=== PATIENT | female | born 1955 | race Caucasian/White ===

== ENCOUNTER 2020-08-07 10:49 | Emergency (ER) | payer BC, OTHER ==
[~2020-08-07] VITALS: Ht 162.6 cm; Wt 45.8 kg
[2020-08-07 11:36] LABS: ABSOLUTE NEUTROPHILS 6.5 thou/uL (1.4-8.2); BASOPHILS 0.6 % (0.0-2.0); EOSINOPHILS 2.4 % (0.0-3.0); HEMATOCRIT 37.2 % (37.0-47.0); HEMOGLOBIN 12.5 gm/dL (12.0-15.0); LYMPHOCYTES 15.9 % (24.0-44.0); MCH 33.4 pg (26.0-34.0); MCHC 33.6 g/dL (28.0-37.0); MCV 99.4 fL (80.0-100.0); MONOCYTES 5.1 % (1.0-8.0); PLATELET COUNT 255 thou/uL (150-400); RBC 3.74 mil/uL (4.20-5.00); RDW 13.8 % (10.5-14.5); WBC 8.6 thou/uL (4.0-11.0)
[2020-08-07 11:48] LABS: ANION GAP 11 mmol/L (7-16); BUN 2 mg/dL (7-18); CALCIUM 8.4 mg/dL (8.5-10.1); CHLORIDE 97 mmol/L (98-107); CO2 29 mmol/L (21-32); CREATININE 0.6 mg/dL (0.6-1.0); GLUCOSE 87 mg/dL (74-106); POTASSIUM 3.3 mmol/L (3.5-5.1); SODIUM 137 mmol/L (136-145)
[2020-08-07 11:49] LABS: INR 1.03; PROTIME 11.2 Seconds (10.5-12.1)
[2020-08-07] MEDS ORDERED: FOSINOPRIL 10 M10 M1 PO (11:55)
[2020-08-07] MEDS ORDERED: CLONAZEPAM 1 MG1 M1 PO (11:55)
[2020-08-07 11:56] LABS: ALBUMIN 3.5 g/dL (3.4-5.0); DIRECT BILIRUBIN 0.1 mg/dL (<0.1-0.2); SALICYLATE 3.7 mg/dL (2.8-20.0); SGOT 143 U/L (15-37); SGPT 125 U/L (14-59); TOTAL BILIRUBIN 0.3 mg/dL (0.2-1.0); TOTAL PROTEIN 6.3 g/dL (6.4-8.2)
[2020-08-07] MEDS ORDERED: HYDROXYZINE HCL10 M2 PO (11:56)
[2020-08-07] MEDS ORDERED: PAROXETINE ER12.5 M2 PO (11:56)
[2020-08-07 12:15] LABS: AMP/METHAMP Negative (Negative); BARBITURATES Negative (Negative); BENZODIAZEPINES Negative (Negative); COCAINE Negative (Negative); METHADONE Negative (Negative); OPIATES Negative (Negative); PCP Negative (Negative)
[2020-08-07 15:16] VITALS: BP 130/68
[2020-08-08] MEDS ORDERED: CLONAZEPAM 1 MG1 M1 PO (10:45)
[2020-08-08] MEDS ORDERED: FOSINOPRIL 10 M10 M1 PO (10:46)
[2020-08-08] MEDS ORDERED: PAROXETINE CR12.5 MG PO (10:47)
[2020-08-08] MEDS ORDERED: HYDROXYZINE HCL10 M2 PO (10:47)
[2020-08-08] MEDS ORDERED: NAPROXEN SODIU220 M2 PO (10:48)
== END 2020-08-07 15:16 ==
LOC: ER 10:49
PROVIDERS: Nurse Practitioner
DX: F10.10 Alcohol abuse, uncomplicated (principal); Z20.822 Contact with and (suspected) exposure to COVID-19; I10 Essential (primary) hypertension; F41.9 Anxiety disorder, unspecified; Z90.49 Acquired absence of other specified parts of digestive tract; Y90.0 Blood alcohol level of less than 20 mg/100 ml

== ENCOUNTER 2020-08-07 15:06 | Inpatient (IN) | payer BC, OTHER ==
[~2020-08-07] VITALS: Ht 162.6 cm; Wt 46.5 kg
[~2020-08-07 15:06] MED LIST: CLONAZEPAM 1 MG1 M1 PO; FOSINOPRIL 10 M10 M1 PO; HYDROXYZINE HCL10 M2 PO; PAROXETINE ER12.5 M2 PO
[2020-08-07 16:54] VITALS: BP 152/87
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
[2020-08-08 06:10] LABS: CHOLESTEROL 179 mg/dL (<200); HDL CHOLESTEROL 75 mg/dL (>40); LDL CHOLESTEROL 90 mg/dL (<100); TC:HDL 2.4 Ratio (Not establshd); TRIGLYCERIDE 73 mg/dL (<150); VLDL 15 mg/dL (<40)
[2020-08-08 06:20] LABS: SERUM ASSESSMENT Clear
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
[2020-08-08 10:27] VITALS: BP 136/75
[2020-08-08] MEDS ORDERED: CLONAZEPAM 1 MG1 M1 PO (10:45)
[2020-08-08] MEDS ORDERED: FOSINOPRIL 10 M10 M1 PO (10:46)
[2020-08-08] MEDS ORDERED: HYDROXYZINE HCL10 M2 PO (10:47)
[2020-08-08] MEDS ORDERED: PAROXETINE CR12.5 MG PO (10:47)
[2020-08-08] MEDS ORDERED: NAPROXEN SODIU220 M2 PO (10:48)
--- NOTE | 2020-08-08 12:37 | NUR ---
SW team spoke with pt and obtained background hx. Pt decided she will stay for tx. She would like word searches and reading material during her stay. SW team will continue to follow pt during her stay on this unit.
[2020-08-08 20:02] VITALS: BP 152/93
[2020-08-08 20:50] VITALS: BP 152/93
--- NOTE | 2020-08-08 20:54 | NUR ---
0700 ASSUMED CARE OF PATIENT, PATIENT AMB WITH STEADY GAIT. PATIENT VOICED CONCERN ABOUT THIS UNIT NOT BEING RIGHT FOR HER AND ASKS TO SPEAK WITH DR AND DOG TRACK KENNEL MANAGER. MEDICATION TAKEN WHOLE. PATIENT EXPRESSES HOW SHE NEEDS HER ROUTINE MEDS. SITS AT TABLE WITH PEERS EXPRESSING HOW SHE FEELS AND OTHER PATIENT START GETTING AGITATED ASKING FOR SAME SERVICE PATIENT. SW TALKS WITH PATIENT, PATIENT STATES SHE WOULD LIKE TO LEAVE AMA YET WANTS TO THING ABOUT IT. PATIENT LS CLEAR, BS ACTIVE VS STABLE.
--- NOTE | 2020-08-09 04:09 | NUR ---
PT CARE WAS RESUMMED AT 1900. SHE IS ALERT AND ORINETED. ABLE TO VERBALISE HER PAINS. SHE DENIES, SI/AVH/HI. SHE IS CONTINET OF BOWEL AND BLADDER. SHE AMBULATES AND SHE TOOK HER MEDS WHOLE. PRN LORAZEPAM WAS GIVEN PER HER REQUEST DUE TO RESTLESSNESS. BED IS LOW AND LOW. ABD IS SOFT NONE TENDER, BS ACTIVE X4 QUADS. SHE TOOK HER MEDS WHOLE. Q12 MINUTES CHEKS ARE ONGOING. CONT CARE AND MONITOR.
[2020-08-09 07:09] LABS: GLYCOHEMOGLOBIN (HGB A1C) 5.3 % (4.8-5.6)
[2020-08-09 09:37] VITALS: BP 156/94
--- NOTE | 2020-08-09 10:58 | NUR ---
New admit to [facility] with depression, +etoh use. No wt hx, BMI slightly low 17.6. On vitamin and thiamine. Eating 50-100% meals and has pending discharge on 08/10. Low nutrition risk
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
[2020-08-09 19:53] VITALS: BP 148/85
[2020-08-10] MEDS ORDERED: Nicotine Transdermal TRANSDERM (09:51)
[2020-08-10] MEDS ORDERED: NEURONTIN 300M300 M2 PO (09:52)
[2020-08-10] MEDS ORDERED: PT HOME MEDICATION MISCELL (09:55)
[2020-08-10] MEDS ORDERED: PRENATAL PO (09:55)
--- NOTE | 2020-08-10 10:29 | NUR ---
REJI D/C Note REJI created a social work handout with information for the [facility] to pt; which is [facility]. REJI gave pt a copy of the document and explained what to do. REJI asked where pt was going; was she going home vs was she going to be with her son who is currently admitted to [facility]. She said she will go home. REJI created a taxi voucher for pt. No other needs for SW team to address at this time.
[2020-08-10 10:45] VITALS: BP 148/85
[2020-08-10 11:38] VITALS: BP 148/90
--- NOTE | 2020-08-10 11:51 | NUR ---
0700 ASSUMED CARE OF PATIENT, PATIENT IN DAYROOM AT THAT TIME. PATIENT SOCIALIZING WITH PEERS. PATIENT REQUESTING PHONE AT BREAKFAST TIME, REEDUCATED ON USE OF PHONE TIMES. PATIENT STATES NEEDING TO SPEAK WITH SON BEFORE LEAVING AND GET SOME AFFAIRS IN ORDER. PATIENT REQUESTS TO BE DC AND GO TO SONS ROOM, DEPUTY CHIEF COUNSEL SPOKE WITH PATIENT WELL ASSEMBLER TUBING. MEDICATION TAKEN WHOLE WITHOUT DIFFICULTY. AFTER BREAKFAST PATIENT CALLS SON. 1030 DC INSTRUCTIONS GIVEN, HOME MEDS OBTAINED FROM PHARMACY. PATIENT DC'D AT 1120AM AMB TO [facility] WITH DEPUTY CHIEF COUNSEL. BELONGING IN HAND, DC INSTRUCTION AND PRESCRIPTION GIVEN.
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
--- NOTE | 2020-08-11 00:44 | NUR ---
late entry d/t computer down time. Assumed care on 08/09/20 @ 19:00, A&Ox4, likes to talk about how she is, "not crazy like the rest of these patients and I do not need to be here" Wants an AA meeting near her home in [facility]. Reports depression and Anxiety. Denies SI and HI. Denies ETOH withdrawal symptoms. Slept in bed with bed in low position, rounding as per unit protocol.
== END 2020-08-10 11:20 | disposition home or self-care (01) | DRG 885 ==
LOC: SBH
PROVIDERS: ADMIT Psychiatry & Neurology Psychiatry; ATTEND Psychiatry & Neurology Psychiatry
DX: F32.2 Major depressive disorder, single episode, severe without psychotic features (principal); R45.851 Suicidal ideations; I10 Essential (primary) hypertension; F10.20 Alcohol dependence, uncomplicated; Y90.9 Presence of alcohol in blood, level not specified; F41.9 Anxiety disorder, unspecified; K58.9 Irritable bowel syndrome, unspecified; Z90.49 Acquired absence of other specified parts of digestive tract
CPT/HCPCS: 10880